=== PATIENT | male | born 1975 | race Caucasian/White ===

== ENCOUNTER 2017-04-02 14:06 | Emergency (ER) | payer MEDICAID ==
[~2017-04-02] VITALS: Ht 162.6 cm; Wt 59.0 kg
[2017-04-02 14:28] VITALS: BP 92/49
--- NOTE | 2017-04-02 15:53 | NUR ---
Patient ambulated to [facility]. TOLL SERVICE OBSERVER evaluating patient at bedside.
--- NOTE | 2017-04-02 16:34 | NUR ---
41/M presents to ED for evaluation of laceration to right thumb. Pt states he was picking up trash and cut his thumb on a glass bottle approximately one hour prior to arrival. No active bleeding noted. Pt reports getting his Tetanus vaccine 6 months ago. Patient is AOX4, ambulatory with steady gait. VSS. Addendum: 04/02/17 at 1720 by [facility] left thumb
--- NOTE | 2017-04-02 16:52 | NUR ---
Pt taken to x-ray.
--- NOTE | 2017-04-02 16:56 | NUR ---
Pt back from x-ray.
[2017-04-02] MEDS ORDERED: LIDOCAINE 1% ED 50 ML ONE (17:00)
[2017-04-02] MEDS ORDERED: NEOMYCIN/POLYMYXIN/BACITRACIN 0.9 GM/1 PKT TP ONE (17:01)
--- NOTE | 2017-04-02 18:01 | NUR ---
Regan at bedside for laceration repair.
[2017-04-02 18:45] VITALS: BP 104/65
--- NOTE | 2017-04-02 18:45 | NUR ---
Patient discharged with v/s stable. Written and verbal after care instructions given and explained. Patient verbalized understanding. Ambulatory with steady gait. All questions addressed prior to discharge. Advised to follow up with PMD.
== END 2017-04-02 18:45 | disposition home or self-care (01) ==
LOC: MED 14:06
DX: S61.012A Laceration without foreign body of left thumb without damage to nail, initial encounter (principal); X58.XXXA Exposure to other specified factors, initial encounter; Y93.89 Activity, other specified; Y92.89 Other specified places as the place of occurrence of the external cause; Y99.8 Other external cause status
CPT/HCPCS: 12001; 73140; 99284; J2001